=== PATIENT | male | born 1990 | race Caucasian/White ===

== ENCOUNTER 2016-07-20 16:17 | Inpatient (IN) | payer OTHER ==
[2016-07-20 17:56] VITALS: BMI 26.4
--- NOTE | 2016-07-20 18:32 | HP ---
[id number] 4d 4-Moderate,w/Arms Extend Anxiety: 4-Mod. Anxious/Guarded Agitation: 4-Moderately Restless Paroxysmal Sweats: 1-Minimal Palms Moist Orientation: 0-Oriented Tacttile Disturbances: 0-None Auditory Disturbances: 0-None Visual Disturbances: 0-None Headache: 2-Mild CIWA-Ar Total Score: 16 Admission ROS BHS - HPI Chief Complaint: withdrawal sx Allergies/Adverse Reactions: Allergies Allergy/AdvReac Type Severity Reaction Status Date / Time No Known Allergies Allergy Verified 07/20/16 19:14 History of Present Illness: 26 years old male with long history of alcohol xanax nicotine dependence denies medical issue has depression is admitted to detox Exam Limitations: No Limitations - Ebola screening Have you traveled outside of the country in the last 21 days: No Have you had contact with anyone from an Ebola affected area: No Have you been sick,other than usual withdrawal symptoms: No Do you have a fever: No - Review of Systems Constitutional: Chills, Changes in sleep, Weight Stable EENT: reports: Other (eye glasses) Respiratory: reports: No Symptoms reported Cardiac: reports: No Symptoms Reported GI: reports: Poor Fluid Intake, Abdominal cramping : reports: No Symptoms Reported Musculoskeletal: reports: Back Pain Integumentary: reports: No Symptoms Reported Neuro: reports: Tremors Endocrine: reports: No Symptoms Reported Hematology: reports: No Symptoms Reported Psychiatric: reports: Judgement Intact, Orientated x3, Depressed Other Systems: Reviewed and Negative Patient History - Patient Medical History Hx Anemia: No Hx Asthma: No Hx Chronic Obstructive Pulmonary Disease (COPD): No Hx Cancer: No Hx Cardiac Disorders: No Hx Congestive Heart Failure: No Hx Hypertension: No Hx Hypercholesterolemia: No Hx Pacemaker: No HX Cerebrovascular Accident: No Hx Seizures: No Hx Dementia: No Hx Diabetes: No Hx Gastrointestinal Disorders: No Hx Liver Disease: No Hx Genitourinary Disorders: No Hx Sexually Transmitted Disorders: No Hx Renal Disease (ESRD): No Hx Thyroid Disease: No Hx Human Immunodeficiency Virus (HIV): No Hx Hepatitis C: No Hx Depression: Yes Hx Suicide Attempt: No Hx Bipolar Disorder: No Hx Schizophrenia: No - Patient Surgical History Past Surgical History: Yes Hx Abdominal Surgery: Yes (2013 umbilical hernia ) Anesthesia Reaction: No - PPD History Previous Implant?: Yes Documented Results: Negative w/o proof Implanted On Prior [facility] Admission?: No PPD to be Administered?: Yes - Smoking Cessation Smoking history: Current every day smoker Have you smoked in the past 12 months: Yes Aproximately how many cigarettes per day: 20 Cigars Per Day: 0 Hx Chewing Tobacco Use: No Initiated information on smoking cessation: Yes 'Breaking Loose' booklet given: 07/20/16 - Substance & Tx. History Hx Alcohol Use: Yes Hx Substance Use: Yes Substance Use Type: Alcohol, Cocaine, Tranquilizers Hx Substance Use Treatment: No - Substances Abused Alcohol Route: Oral Frequency: Daily Amount used: [id number] Age of first use: 18 Date of Last Use: 07/19/16 Alprazolam (Xanax) Route: Oral Frequency: Daily Amount used: 4 mg Age of first use: 21 Date of Last Use: 07/20/16 Family Disease History - Family Disease History Family Disease History: Diabetes: Grandparent, [place]: Grandparent Admission Physical Exam BHS - Vital Signs Vital Signs: Vital Signs - 24 hr 07/20/16 17:39 Temperature 97.0 F L Pulse Rate 94 H Respiratory 16 Rate Blood Pressure 111/76 - Physical General Appearance: Yes: Nourished, Appropriately Dressed, Mild Distress, Tremorous, Irritable, Sweating, Anxious HEENTM: Yes: Hearing grossly Normal, Normal ENT Inspection, Normocephalic, Normal Voice Respiratory: Yes: Chest Non-Tender, Lungs Clear, Normal Breath Sounds, No Respiratory Distress, No Accessory Muscle Use Neck: Yes: Supple, Trachea in good position Breast: Yes: Breasts Symetrical Cardiology: Yes: Regular Rhythm, S1, S2, Tachycardia Abdominal: Yes: Non Tender, Soft Genitourinary: Yes: Within Normal Limits Back: Yes: Normal Inspection Musculoskeletal: Yes: full range of Motion, Gait Steady, Back pain Extremities: Yes: Normal Inspection, Normal Range of Motion, Non-Tender, Tremors Neurological: Yes: Fully Oriented, Alert, Motor Strength 5/5, Normal Response, Depressed Affect Integumentary: Yes: Warm, Other (history of iv opioid - last iv "months" ago) Lymphatic: Yes: Within Normal Limits - Diagnostic (1) Alcohol dependence with uncomplicated withdrawal Current Visit: Yes Status: Acute (2) Sedative, hypnotic or anxiolytic dependence with withdrawal, uncomplicated Current Visit: Yes Status: Acute (3) Nicotine dependence Current Visit: Yes Status: Acute Qualifiers: Nicotine product type: cigarettes Substance use status: in withdrawal Qualified Code(s): F17.213 - Nicotine dependence, cigarettes, with withdrawal (4) Depression (emotion) Current Visit: Yes Status: Suspected Qualifiers: Depression Type: dysthymia Qualified Code(s): F34.1 - Dysthymic disorder Cleared for Admission S - Detox or Rehab [facility] Level of Care: Medically Managed Detox Regimen/Protocol: Librium S Breath Alcohol Content Breath Alcohol Content: 0 Urine Drug Screen - Control Is Test Valid: Yes - Results Drug Screen Negative: No Urine Drug Screen Results: REGINA-Cocaine, BZO-Benzodiazepines, TCA-Tricyclic Antidepress
[2016-07-20] MEDS ORDERED: P-EPHED 60MG/TRIPROLIDI 2.5MG TABLET PO PRN (19:23)
[2016-07-20] MEDS ORDERED: guaiFENesin/D-METHORPHAN HB 10 ML UNIT-DOSE CUPS PO PRN (19:23)
[2016-07-20] MEDS ORDERED: MAGNESIUM HYDROX 2400MG/30ML ORAL SUSPENSION 30 ML CUP PO PRN (19:23)
[2016-07-20] MEDS ORDERED: MENTHOL/PHENOL 1 EACH UD MM PRN (19:23)
[2016-07-20] MEDS ORDERED: chlordiazePOXIDE HCL 25 MG CAPSULE PO PRN (19:23)
[2016-07-20] MEDS ORDERED: MAGNESIUM CITRATE 300 ML BOTTLE PO PRN (19:23)
[2016-07-20] MEDS ORDERED: LOPERAMIDE HCL 2 MG CAPSULE PO PRN (19:23)
[2016-07-20] MEDS ORDERED: MAG HYDROX/AL HYDROX/SIMETH 30 ML UNIT-DOSE CUP PO PRN (19:23)
[2016-07-20] MEDS ORDERED: ACETAMINOPHEN 325 MG TABLET (FP) PO PRN (19:23)
[2016-07-20] MEDS: chlordiazePOXIDE HCL 25 MG CAPSULE PO SCH (22:02)
[2016-07-20] MEDS: diphenhydrAMINE HCL 50 MG CAPSULE PO PRN (22:02)
[2016-07-20] MEDS: THIAMINE HCL 100 MG TABLET (FP) PO SCH (22:04)
[2016-07-21] MEDS: chlordiazePOXIDE HCL 25 MG CAPSULE PO SCH ×4 (06:32→22:22)
[2016-07-21] MEDS: NICOTINE POLACRILEX 4 MG GUM BC PRN ×3 (06:39→22:26)
[2016-07-21] MEDS: cloNIDine HCL 0.1 MG TABLET PO PRN (09:22)
[2016-07-21] MEDS: hydrOXYzine PAMOATE 50 MG CAPSULE (FP) PO PRN ×3 (09:22→22:23)
--- NOTE | 2016-07-21 09:38 | CONSULT ---
[facility] Psychiatric Consult - Data Date of interview: 07/21/16 Admission source: [facility] Identifying data: This is 26 years old male with no psychiatric hospitalization history intoxicated with: Alcohol, Xanax and Nicotine Substance Abuse History: - Smoking Cessation. Smoking history: Current every day smoker. Have you smoked in the past 12 months: Yes. Aproximately how many cigarettes per day: 20. Cigars Per Day: 0. Hx Chewing Tobacco Use: No. Initiated information on smoking cessation: Yes. 'Breaking Loose' booklet given : 07/20/16. - Substance & Tx. History. Hx Alcohol Use: Yes. Hx Substance Use : Yes. Substance Use Type: Alcohol, Cocaine, Tranquilizers. Hx Substance Use Treatment: No. - Substances Abused. Alcohol. Route: Oral. Frequency: Daily. Amount used: [id number]. Age of first use: 18. Date of Last Use: 07/19. Alprazolam (Xanax). Route: Oral. Frequency: Daily. Amount used: 4 mg. Age of first use: 21. Date of Last Use: 07/20/16 Medical History: Denies significant medical issue Psychiatric History: Reports history of depression, reports no medications taking prior to admission Physical/Sexual Abuse/Trauma History: Denies Additional Comment: Observation. Detox unit care Protocol Mental Status Exam - Mental Status Exam Alert and Oriented to: Person Cognitive Function: Fair Patient Appearance: Unkempt Mood: Sad Affect: Flat Patient Behavior: Restless Speech Pattern: Delayed Voice Loudness: Mildly Soft/Quiet Thought Process: Goal Oriented Thought Disorder: Being Controlled Hallucinations: Denies Suicidal Ideation: Denies Homicidal Ideation: Denies Insight/Judgement: Fair Sleep: Difficulty falling asleep Appetite: Fair Muscle strength/Tone: Normal Gait/Station: Normal Additional Comments: Observation. Detox unit care Protocol Psychiatric Findings - Problem List ([place] 1, 2,3) (1) Alcohol dependence with uncomplicated withdrawal Current Visit: Yes Status: Acute (2) Nicotine dependence Current Visit: Yes Status: Acute Qualifiers: Nicotine product type: cigarettes Substance use status: in withdrawal Qualified Code(s): F17.213 - Nicotine dependence, cigarettes, with withdrawal (3) Sedative, hypnotic or anxiolytic dependence with withdrawal, uncomplicated Current Visit: Yes Status: Acute (4) Drug-induced mood disorder Current Visit: Yes Status: Acute - Initial Treatment Plan Initial Treatment Plan: Observation. Detox unit care Protocol
[2016-07-21] MEDS: PRENATAL VITAMINS W/ FOLIC ACID TABLET (FP) PO SCH (10:06)
[2016-07-21] MEDS: NICOTINE 21 MG/24 HOURS TOPICAL PATCH TD SCH (10:07)
--- NOTE | 2016-07-21 10:24 | PN ---
[facility] CIWA - CIWA Score Nausea/Vomitin Muscle Tremors: 3 Anxiety: 3 Agitation: 3 Paroxysmal Sweats: 3 Orientation: 0-Oriented Tacttile Disturbances: 2-Mild Itch/Numbness/Burn Auditory Disturbances: 0-None Visual Disturbances: 0-None Headache: 0-None Present CIWA-Ar Total Score: 17 S Progress Note (SOAP) Subjective: feeling weak, anxious, palpitations , anxiety , muscle aches Objective: 07/21/16 10:21 Vital Signs Temperature 97.7 F 07/21/16 09:37 Pulse Rate 80 07/21/16 09:37 Respiratory Rate 16 07/21/16 09:37 Blood Pressure 109/52 07/21/16 09:37 O2 Sat by Pulse Oximetry (%) pending labs 07/21/16 10:21 pt aox3 , crying upset , anxious , irritable Assessment: 07/21/16 10:22 withdrawal sx;s Plan: cont. detox increase fluids clonidine 0.1 mg now vistaril 50mg now motrin prn
[2016-07-21 10:39] LABS: MCHC 32.5 g/dl (32.0-35.9); MEAN CELL VOLUME 86.2 fl (80-96); PLATELET COUNT 327 K/MM3 (134-434); RDW 14.6 % (11.9-15.9); WHITE BLOOD COUNT 7.7 K/mm3 (4.0-10.0)
[2016-07-21 11:04] LABS: ALBUMIN 4.2 g/dl (3.4-5.0); ALK PHOS 87 U/L (45-117); ANION GAP 12 (8-16); BILIRUBIN,TOTAL 0.4 mg/dL (0.2-1.0); CALCIUM 9.1 mg/dL (8.5-10.1); CO2 25 mmol/L (21-32); COCKROFT - GAULT 115.71; GLUCOSE,RANDOM 92 mg/dL (74-106); SGOT/AST 12 U/L (15-37); SGPT/ALT 23 U/L (12-78); TOT PROT 7.8 g/dl (6.4-8.2)
[2016-07-21 12:01] LABS: HIV 1 & 2 AB NEGATIVE; HIV 1 AGp24 NEGATIVE
--- NOTE | 2016-07-21 13:23 | EKG ---
Test Reason : Blood Pressure : / mmHG Vent. Rate : 065 BPM Atrial Rate : 065 BPM P-R Int : 146 ms QRS Dur : 112 ms QT Int : 402 ms P-R-T Axes : 038 025 036 degrees QTc Int : 418 ms NORMAL SINUS RHYTHM CANNOT RULE OUT ANTERIOR INFARCT , AGE UNDETERMINED ABNORMAL ECG NO PREVIOUS ECGS AVAILABLE Confirmed by HEYDI VÁZQUEZ, LISANDRO ([id number]) on 07/21/2016 1:23:14 PM Referred By: Confirmed By:LISANDRO SOLIZ MD
[2016-07-21 16:29] LABS: URINE APPEARANCE CLEAR; URINE BILIRUBIN NEGATIVE (NEGATIVE); URINE BLOOD NEGATIVE (NEGATIVE); URINE COLOR YELLOW; URINE GLUCOSE (UA) NEGATIVE (NEGATIVE); URINE KETONE NEGATIVE (NEGATIVE); URINE LEUK ESTERASE NEGATIVE (NEGATIVE); URINE NITRITE NEGATIVE (NEGATIVE); URINE PROTEIN NEGATIVE (NEGATIVE); URINE UROBILINOGEN NEGATIVE E.U./dl (0.2-1.0)
[2016-07-21] MEDS: THIAMINE HCL 100 MG TABLET (FP) PO SCH (22:22)
[2016-07-22] MEDS: chlordiazePOXIDE HCL 25 MG CAPSULE PO SCH ×3 (05:41→17:36)
[2016-07-22] MEDS: hydrOXYzine PAMOATE 50 MG CAPSULE (FP) PO PRN ×3 (07:14→21:01)
[2016-07-22] MEDS: NICOTINE POLACRILEX 4 MG GUM BC PRN ×2 (09:04→15:32)
[2016-07-22] MEDS: IBUPROFEN 400 MG TABLET (FP) PO PRN (09:05)
--- NOTE | 2016-07-22 09:57 | PN ---
S CIWA - CIWA Score Nausea/Vomitin-No Nausea/No Vomiting Muscle Tremors: 4-Moderate,w/Arms Extend Anxiety: 3 Agitation: 4-Moderately Restless Paroxysmal Sweats: 3 Orientation: 0-Oriented Tacttile Disturbances: 0-None Auditory Disturbances: 0-None Visual Disturbances: 0-None Headache: 0-None Present CIWA-Ar Total Score: 14 BHS Progress Note (SOAP) Subjective: irritable agitation anxiety sweats Objective: 07/22/16 09:58 Vital Signs Temperature 98.1 F 07/22/16 09:09 Pulse Rate 98 H 07/22/16 09:09 Respiratory Rate 18 07/22/16 09:09 Blood Pressure 127/58 07/22/16 09:09 O2 Sat by Pulse Oximetry (%) Laboratory Tests 07/21/16 07/21/16 07/21/16 07:00 07:00 07:00 WBC 7.7 RBC 4.96 Hgb 13.9 Hct 42.8 MCV 86.2 MCHC 32.5 RDW 14.6 Plt Count 327 MPV 8.0 Sodium 141 Potassium 4.5 Chloride 104 Carbon Dioxide 25 Anion Gap 12 BUN 12 Creatinine 1.0 Creat Clearance w eGFR > 60 Random Glucose 92 Calcium 9.1 Total Bilirubin 0.4 AST 12 L ALT 23 Alkaline Phosphatase 87 Total Protein 7.8 Albumin 4.2 Urine Color Urine Appearance Urine pH Ur Specific [place] Urine Protein Urine Glucose (UA) Urine Ketones Urine Blood Urine Nitrite Urine Bilirubin Urine Urobilinogen Ur Leukocyte Esterase RPR Titer Nonreactive Hepatitis C Antibody HIV 1&2 Antibody Screen HIV P24 Antigen 07/21/16 07/21/16 07/21/16 07:00 07:00 15:57 WBC RBC Hgb Hct MCV MCHC RDW Plt Count MPV Sodium Potassium Chloride Carbon Dioxide Anion Gap BUN Creatinine Creat Clearance w eGFR Random Glucose Calcium Total Bilirubin AST ALT Alkaline Phosphatase Total Protein Albumin Urine Color Yellow Urine Appearance Clear Urine pH 5.0 Ur Specific [place] > 1.030 Urine Protein Negative Urine Glucose (UA) Negative Urine Ketones Negative Urine Blood Negative Urine Nitrite Negative Urine Bilirubin Negative Urine Urobilinogen Negative Ur Leukocyte Esterase Negative RPR Titer Hepatitis C Antibody <0.1 HIV 1&2 Antibody Screen Negative HIV P24 Antigen Negative awake/alert ambulating no acute distress Assessment: 07/22/16 09:58 withdrawal sx Plan: continue detox increase fluids
[2016-07-22] MEDS: PRENATAL VITAMINS W/ FOLIC ACID TABLET (FP) PO SCH (10:07)
[2016-07-22] MEDS: cloNIDine HCL 0.1 MG TABLET PO PRN ×2 (10:07→17:38)
[2016-07-22] MEDS: NICOTINE 21 MG/24 HOURS TOPICAL PATCH TD SCH (10:08)
[2016-07-22] MEDS: THIAMINE HCL 100 MG TABLET (FP) PO SCH (22:22)
[2016-07-22] MEDS: chlordiazePOXIDE 5 MG CAPSULE PO SCH (22:23)
[2016-07-22] MEDS: diphenhydrAMINE HCL 50 MG CAPSULE PO PRN (22:23)
[2016-07-23] MEDS: chlordiazePOXIDE 5 MG CAPSULE PO SCH ×3 (05:42→17:22)
[2016-07-23] MEDS: NICOTINE POLACRILEX 4 MG GUM BC PRN ×2 (07:47→19:42)
--- NOTE | 2016-07-23 08:36 | PN ---
S Progress Note (SOAP) Subjective: ALERT,IRRITABLE,INTERRUPTED SLEEP Objective: 07/23/16 08:35 Vital Signs Temperature 97.3 F L 07/23/16 06:21 Pulse Rate 81 07/23/16 06:21 Respiratory Rate 16 07/23/16 06:21 Blood Pressure 102/64 07/23/16 06:21 O2 Sat by Pulse Oximetry (%) Assessment: 07/23/16 08:35 WITHDRAWAL SYMPTOM Plan: CONTINUE DETOX,DISCHARGE IN AM
[2016-07-23] MEDS: PRENATAL VITAMINS W/ FOLIC ACID TABLET (FP) PO SCH (10:12)
[2016-07-23] MEDS: NICOTINE 21 MG/24 HOURS TOPICAL PATCH TD SCH (10:12)
[2016-07-23] MEDS: IBUPROFEN 400 MG TABLET (FP) PO PRN (10:13)
[2016-07-23] MEDS: cloNIDine HCL 0.1 MG TABLET PO PRN (10:16)
[2016-07-23] MEDS: hydrOXYzine PAMOATE 50 MG CAPSULE (FP) PO PRN ×3 (12:56→22:24)
[2016-07-23] MEDS: THIAMINE HCL 100 MG TABLET (FP) PO SCH (22:24)
[2016-07-23] MEDS: chlordiazePOXIDE HCL 10 MG CAPSULE PO SCH (22:24)
[2016-07-24] MEDS: chlordiazePOXIDE HCL 10 MG CAPSULE PO SCH (06:03)
[2016-07-24 06:26] VITALS: BP 135/80; PULSE 77; TEMP 97.7
--- NOTE | 2016-07-24 11:42 | DS ---
[facility] Detox Discharge Summary Admission Date: 07/20/16 Discharge Date: 07/24/16 - History Present History: Alcohol Dependence, Cannabis Dependence Pertinent Past History: No significant medical history - Physical Exam Results Vital Signs: Vital Signs Temperature 97.7 F 07/24/16 06:00 Pulse Rate 77 07/24/16 06:00 Respiratory Rate 18 07/24/16 06:00 Blood Pressure 135/80 07/24/16 06:00 O2 Sat by Pulse Oximetry (%) Pertinent Admission Physical Exam Findings: withdrawal sx Laboratory Last Values WBC 7.7 K/mm3 (4.0-10.0) 07/21/16 07:00 RBC 4.96 M/mm3 (4.00-5.60) 07/21/16 07:00 Hgb 13.9 GM/dL (11.7-16.9) 07/21/16 07:00 Hct 42.8 % (35.4-49) 07/21/16 07:00 MCV 86.2 fl (80-96) 07/21/16 07:00 MCHC 32.5 g/dl (32.0-35.9) 07/21/16 07:00 RDW 14.6 % (11.9-15.9) 07/21/16 07:00 Plt Count 327 K/MM3 (134-434) 07/21/16 07:00 MPV 8.0 fl (7.5-11.1) 07/21/16 07:00 Sodium 141 mmol/L (136-145) 07/21/16 07:00 Potassium 4.5 mmol/L (3.5-5.1) 07/21/16 07:00 Chloride 104 mmol/L (98-107) 07/21/16 07:00 Carbon Dioxide 25 mmol/L (21-32) 07/21/16 07:00 Anion Gap 12 (8-16) 07/21/16 07:00 BUN 12 mg/dL (7-18) 07/21/16 07:00 Creatinine 1.0 mg/dL (0.7-1.3) 07/21/16 07:00 Creat Clearance w eGFR > 60 (>60) 07/21/16 07:00 Random Glucose 92 mg/dL (74-106) 07/21/16 07:00 Calcium 9.1 mg/dL (8.5-10.1) 07/21/16 07:00 Total Bilirubin 0.4 mg/dL (0.2-1.0) 07/21/16 07:00 AST 12 U/L (15-37) L 07/21/16 07:00 ALT 23 U/L (12-78) 07/21/16 07:00 Alkaline Phosphatase 87 U/L (45-117) 07/21/16 07:00 Total Protein 7.8 g/dl (6.4-8.2) 07/21/16 07:00 Albumin 4.2 g/dl (3.4-5.0) 07/21/16 07:00 Urine Color Yellow 07/21/16 15:57 Urine Appearance Clear 07/21/16 15:57 Urine pH 5.0 (5.0-8.0) 07/21/16 15:57 Ur Specific [place] > 1.030 (1.001-1.035) 07/21/16 15:57 Urine Protein Negative (NEGATIVE) 07/21/16 15:57 Urine Glucose (UA) Negative (NEGATIVE) 07/21/16 15:57 Urine Ketones Negative (NEGATIVE) 07/21/16 15:57 Urine Blood Negative (NEGATIVE) 07/21/16 15:57 Urine Nitrite Negative (NEGATIVE) 07/21/16 15:57 Urine Bilirubin Negative (NEGATIVE) 07/21/16 15:57 Urine Urobilinogen Negative E.U./dl (0.2-1.0) 07/21/16 15:57 Ur Leukocyte Esterase Negative (NEGATIVE) 07/21/16 15:57 RPR Titer Nonreactive (NONREACTIVE) 07/21/16 07:00 Hepatitis C Antibody <0.1 s/co ratio (0.0-0.9) 07/21/16 07:00 HIV 1&2 Antibody Screen Negative 07/21/16 07:00 HIV P24 Antigen Negative 07/21/16 07:00 labs noted - Treatment Hospital Course: Detox Protocol Followed, Detoxed Safely, Responded well, Discharged Condition Good - Medication Discharge Medications: Ambulatory Orders NK [No Known Home Medication] 07/20/16 - Diagnosis (1) Alcohol dependence with uncomplicated withdrawal Status: Acute (2) Drug-induced mood disorder Status: Acute (3) Depression (emotion) Status: Suspected Qualifiers: Depression Type: dysthymia Qualified Code(s): F34.1 - Dysthymic disorder - AMA Did Patient Leave Against Medical Advice: No
== END 2016-07-24 09:20 | disposition home or self-care (01) | DRG 775 ==
LOC: YASAS 16:17 → Y6N 20:03
PROVIDERS: ADMIT Internal Medicine Addiction Medicine; ATTEND Internal Medicine Addiction Medicine
PROC: HZ2ZZZZ Detoxification Services for Substance Abuse Treatment (ICD-10-PCS; principal; 2016-07-24)
DX: F13.230 Sedative, hypnotic or anxiolytic dependence with withdrawal, uncomplicated (principal); F10.230 Alcohol dependence with withdrawal, uncomplicated; F17.210 Nicotine dependence, cigarettes, uncomplicated; F34.1 Dysthymic disorder; F19.24 Other psychoactive substance dependence with psychoactive substance-induced mood disorder
CPT/HCPCS: 36415; 80053; 81003; 85027; 86593; 87389; 93005; 93010